=== PATIENT | male | born 1960 | race Caucasian/White ===

== ENCOUNTER 2016-12-15 12:06 | Day surgery (SDC) | payer OTHER ==
[~2016-12-15] VITALS: Ht 167.6 cm; Wt 87.8 kg
[2016-12-15] MEDS ORDERED: HYD25 PO (12:56)
[2016-12-15] MEDS ORDERED: GABA-526 PO (12:56)
[2016-12-15] MEDS ORDERED: ATOR40TA68 PO (12:56)
[2016-12-15] MEDS ORDERED: ASPI-664 PO (12:56)
[2016-12-15] MEDS ORDERED: RANO500T2 PO (12:56)
[2016-12-15] MEDS ORDERED: LISI10TA2 PO (12:56)
[2016-12-15] MEDS ORDERED: OMEP20CA16 PO (12:56)
[2016-12-15] MEDS ORDERED: METO-448 PO (12:56)
[2016-12-15 13:01] VITALS: Ht 167.6 cm; Wt 87.8 kg
[2016-12-15 16:19] VITALS: BP 125/73; PULSE 44; RESP 18
[2016-12-15] MEDS ORDERED: PROPOFOL 60 ML ONE (16:41)
--- NOTE | 2016-12-15 16:52 | OPPN ---
Date/Time of Note Date/Time of Note DATE: 12/15/16 TIME: 16:49 Proc Note GI Procedure date: Dec 15, 2016 Pre-procedure Diagnosis * Dyspepsia Post-procedure Diagnosis Assessment: * Moderate erosive gastritis. Rule out H. pylori infection. Biopsies obtained Plan: * Omeprazole 40 mg daily * Review pathology as soon as available * Follow-up as previously scheduled Operation Performed * EGD with biopsies Surgeon: NICHOLAS QUINONES MD Anesthesia Type: MAC Anesthesiologist: CHAVO HELM Estimated blood loss: none Transfusion Required: no Specimens 1 gastric body and antrum Grafts/Implants: none Complications: no Pt Condition post procedure: stable Disposition: PACU, other Procedure Description After informed consent, with the patient/relatives understanding the procedure, its indications, potential risks and complications, including but not limited to : allergic reaction, bleeding, perforation or infection, and after all pertinent questions were answered to the patients satisfaction, the patient/ relatives signed witnessed informed consent. Following this, premedication was administered slowly IV push under careful cardiovascular and respiratory monitoring with pulse oximetry, automatic blood pressure, and national sales director. Once the sedative effect was achieved the patient was place in the left lateral decubitus, the panendoscope was introduced and advanced under visual control. Careful examination of the upper gastrointestinal tract, both on insertion as well as withdrawal of the instrument disclosing the following findings: ESOPHAGUS: the mucosa of the entire esophagus was carefully examined and showed the following findings: the mucosa appears within normal limits. There is no evidence of esophagitis, varices, neoplasm, or stricture. No Hiatal Hernia identified. STOMACH: Upon entrance to the stomach air was insufflated, the gastric waite distended normally. The mucosa of the fundus, body and antrum of the stomach was carefully examined both head-on and on retroflexion, and showed the following findings: There is significant erythema edema and superficial erosion of the mucosa the antrum. Biopsies were obtained to rule out H. pylori infection. Otherwise the mucosa appears within normal limits with no abnormalities. There is no evidence of ulcers or neoplasm. PYLORUS: The pylorus was carefully examined and showed the following findings: the pylorus appears patent and within normal limits, with no evidence of gastric outlet obstruction. DUODENUM: The duodenal mucosa was carefully examined in the duodenal bulb as well as the second portion of the duodenum and showed the following findings: the mucosa appears unremarkable with no evidence of duodenitis, ulcer or neoplasm. NICHOLAS QUINONES MD Dec 15, 2016 16:52
--- NOTE | 2016-12-15 17:16 | OPPN ---
Date/Time of Note Date/Time of Note DATE: 12/15/16 TIME: 17:11 Proc Note GI Procedure date: Dec 15, 2016 Pre-procedure Diagnosis * Dyspepsia Post-procedure Diagnosis Assessment: * 6 mm polyp proximal ascending colon. Snared and retrieved * 4 mm sessile polyp descending colon. Ablated * 10 mm polyp sigmoid colon. Snared and retrieved * Mild diverticulosis. * Moderate-sized internal hemorrhoids. Plan: * Review pathology as soon as available * Annual Hemoccult stool testing * Colonoscopy in 3-5 years pending review pathology Operation Performed * Colonoscopy with polyp ablation * Colonoscopy with snare polypectomy Surgeon: NICHOLAS QUINONES MD Anesthesia Type: MAC Anesthesiologist: CHAVO HELM Estimated blood loss: none Transfusion Required: no Specimens #1 Proximal ascending colon polyp #2 Descending colon polyp #3 Sigmoid polyp Pt Condition post procedure: stable Disposition: PACU, other Procedure Description After informed consent, with the patient/relatives understanding the procedure, its indications and potential risks and complications, including but not limited to: Allergic reaction, bleeding, perforation, infection, and after all pertinent questions were answered to the patient's satisfaction, the patient/ relatives signed the witnessed informed consent. Following this, premedication was administered slowly IV push under careful cardiovascular and respiratory monitoring with pulse OXIMETRY, automatic blood pressure, and secured entrance monitor. Once the sedative effect was achieved, the patient was placed in the left lateral decubitus position, digital rectal examination was performed. The colonoscope was then introduced and advanced under visual control throughout all segments of the colon including: the rectum, sigmoid, descending colon, splenic flexure, transverse colon, hepatic flexure, ascending colon and finally reaching the cecum which was clearly identified by transillumination, finger indentation and the ileocecal valve. Careful examination of the mucosa of the lower gastrointestinal tract both on insertion as well as withdrawal of the instrument disclosed the following findings: PREPARATION QUALITY: [Adequate], RECTAL EXAM: The anorectal area was visualized examined and digital rectal examination performed with the following findings: No evidence of perirectal disease, no masses. COLONIC MUCOSA: The mucosa of all segments of the colon was carefully examined and showed the following findings: 6 mm polyp proximal ascending colon. Snared and retrieved. 4 mm sessile polyp descending colon. Ablated. 10 mm pedunculated polyp sigmoid colon snared and retrieved. There was mild diverticulosis in the left colon. Moderate-sized internal hemorrhoids are present. Otherwise the examined mucosa appears within normal limits. There is no evidence of inflammatory changes, other neoplasms, vascular malformation, or any other abnormality. The instrument was then withdrawn, the patient tolerated the procedure well and was transferred out of the Endoscopy Suite awake and in good condition to continue recovery under observation. NICHOLAS QUINONES MD Dec 15, 2016 17:16
[2016-12-15 17:40] VITALS: BP 127/67; RESP 18
== END 2016-12-15 18:15 | disposition home or self-care (01) ==
LOC: GIL 12:06
PROVIDERS: ATTEND Internal Medicine Gastroenterology
DX: Z12.11 Encounter for screening for malignant neoplasm of colon (principal); K29.30 Chronic superficial gastritis without bleeding; D12.4 Benign neoplasm of descending colon; D12.5 Benign neoplasm of sigmoid colon; K64.8 Other hemorrhoids; I10 Essential (primary) hypertension; I25.10 Atherosclerotic heart disease of native coronary artery without angina pectoris
CPT/HCPCS: 45380; 88305; 88312; Z7610

== ENCOUNTER 2018-07-14 22:32 | Inpatient (IN) | payer OTHER ==
[~2018-07-14] VITALS: Ht 167.6 cm; Wt 86.6 kg
[~2018-07-14 22:32] MED LIST: ASPI-817 PO; ATOR40TA68 PO; GABA-526 PO; HYDR25TA6 PO; LISI10TA2 PO; METO-448 PO; OMEP20CA16 PO; RANO500T2 PO
[2018-07-14] MEDS ORDERED: ONDANSETRON 4 MG INJ IV STA (22:47)
[2018-07-14] MEDS ORDERED: SOD CHLORIDE 0.9% 50 ML IV ONE (23:30)
[2018-07-14] MEDS ORDERED: ALTEPLASE 100 MG INJ IV* ONE (23:30)
[2018-07-14] MEDS ORDERED: ALTEPLASE (tPA) 1 MG/ML BOLUS SYG IV* ONE ×2 (23:30→23:45)
[2018-07-14] MEDS ORDERED: IOHEXOL 300MG/ML 150 ML BTL ONE (23:42)
[2018-07-14] MEDS ORDERED: SOD CHLORIDE 0.9% 100 ML ONE (23:42)
[2018-07-14] MEDS ORDERED: ALTEPLASE IV ONE (23:45)
[2018-07-15] VITALS (24 sets, daily range): BP systolic 109–148; BP diastolic 69–102; PULSE 58–102; RESP 11–22; Ht 167.6 cm; Wt 86.6 kg
[2018-07-15] MEDS ORDERED: ALTEPLASE 100 MG INJ IV* ONE
[2018-07-15] MEDS ORDERED: SOD CHLORIDE 0.9% 50 ML IV ONE
[2018-07-15] MEDS ORDERED: ALTEPLASE (tPA) 1 MG/ML BOLUS SYG IV* ONE
--- NOTE | 2018-07-15 00:15 | ERD ---
ER Documentation Chief Complaint Chief Complaint ILIANA 87,from home,CP radiating to L shoulder,vomiting X2 HPI 58-year-old male with a history of hypertension and CAD status post stent placement in 2016 on Plavix and aspirin brought in by ambulance from home after he started experiencing chest discomfort. He states he sat down to eat food when he suddenly felt a strong pressure in his chest. The pain was radiating to his left shoulder. He also felt pain on the right side of his head. As he was being loaded onto the ambulance, he started experiencing left foot and left hand numbness which he did not tell EMS. When I evaluated the patient, who is an [place]ian speaker, he explained to me and [place]ian that he was having the symptoms, about 10 minutes prior to arrival. He denies any associated back pain with this chest pain. He does have associated nausea and vomiting that is nonbloody and nonbilious. Denies any abdominal pain. Last known well time: 2214 ROS All systems reviewed and are negative except as per history of present illness. Medications Home Meds Reported Medications Metoprolol Succinate* (Toprol XL*) 25 Mg Tab.sr.24h, 25 MG PO DAILY, #30 TAB 07/15/18 Ranolazine* (Ranexa*) 1,000 Mg Tab.sr.12h, 1000 MG PO Q12, TAB 07/15/18 Omeprazole* (Omeprazole*) 20 Mg Capsule.dr, 20 MG PO DAILY, #30 CAP 12/15/16 Ranolazine* (Ranexa*) 500 Mg Tab.sr.12h, 500 MG PO Q12, TAB 12/15/16 Gabapentin* (Gabapentin*) 600 Mg Tablet, 600 MG PO BID, #60 TAB 12/15/16 Hydrochlorothiazide* (Hydrochlorothiazide*) 25 Mg Tab, 25 MG PO DAILY, #30 TAB 12/15/16 Lisinopril* (Lisinopril*) 10 Mg Tablet, 5 MG PO DAILY, #30 TAB 12/15/16 Aspirin* (Aspirin* EC) 81 Mg Tablet.dr, 81 MG PO DAILY, TAB 12/15/16 Atorvastatin* (Atorvastatin*) 40 Mg Tablet, 20 MG PO QHS, #30 TAB 12/15/16 Discontinued Reported Medications Metoprolol Tartrate* (Lopressor*) 25 Mg Tab, 25 MG PO BID, #60 TAB 12/15/16 Allergies Allergies: Coded Allergies: No Known Allergy (Unverified , 07/15/18) PMhx/Soc History of Surgery: Yes (HEART STENT, TONSILLECTOMY, RIGHT KNEE) Anesthesia Reaction: No Hx Neurological Disorder: No Hx Respiratory Disorders: No Hx Cardiac Disorders: Yes (HTN) Hx Psychiatric Problems: No Hx Miscellaneous Medical Probl: Yes (HIGH CHOLESTEROL) Hx Alcohol Use: No Hx Substance Use: No Hx Tobacco Use: Yes (20 YRS AGO) FmHx Family History: No diabetes Physical Exam Vitals Vital Signs Date Temp Pulse Resp B/P (MAP) Pulse Ox O2 O2 Flow FiO2 Time Delivery Rate 07/15/18 63 12 135/92 99 01:15 (106) 07/15/18 61 14 138/97 99 01:00 (111) 07/15/18 63 15 144/84 99 00:45 (104) 07/15/18 58 22 135/87 99 00:30 (103) 07/15/18 60 14 118/89 98 00:15 (99) 07/15/18 55 12 135/88 100 00:00 (104) 07/14/18 55 12 145/92 99 Room Air 23:56 (109) 07/14/18 57 16 134/94 95 Room Air 23:38 (107) 07/14/18 Nasal 2 23:15 Cannula 07/14/18 98.0 68 18 123/89 98 22:39 (100) Physical Exam Const: Appears to be in distress, vomiting Head: Atraumatic Eyes: Normal Conjunctiva, PERRLA, EOMI, no nystagmus ENT: Normal External Ears, Nose and Mouth. Neck: Full range of motion. No meningismus. No JVD Resp: Clear to auscultation bilaterally Cardio: Regular rate and rhythm, no murmurs. 2+ distal pulses in all 4 extremities Abd: Soft, non tender, non distended. Normal bowel sounds Skin: No petechiae or rashes Back: No midline or flank tenderness Ext: No cyanosis, or edema Neur: Awake and alert, oriented x3, cranial nerves intact, strength 5/5 in right upper and right lower extremities. Strength 4/5 in left upper extremity and 3/5 in left lower extremity. Diminished sensations to painful stimuli on the left. Right side sensation is intact. Psych: Normal Mood and Affect Result Diagram: 4/10/19 2252 4/10/19 2252 Results 24 hrs Laboratory Tests Test 07/14/18 22:52 White Blood Count 11.7 10^3/ul Red Blood Count 4.59 10^6/ul Hemoglobin 15.1 g/dl Hematocrit 44.5 % Mean Corpuscular Volume 96.9 fl Mean Corpuscular Hemoglobin 32.9 pg Mean Corpuscular Hemoglobin Concent 33.9 g/dl Red Cell Distribution Width 13.3 % Platelet Count 230 10^3/UL Mean Platelet Volume 10.0 fl Immature Granulocytes % 1.500 % Neutrophils % 64.8 % Lymphocytes % 25.0 % Monocytes % 7.1 % Eosinophils % 1.3 % Basophils % 0.3 % Nucleated Red Blood Cells % 0.0 /100WBC Immature Granulocytes # 0.170 10^3/ul Neutrophils # 7.6 10^3/ul Lymphocytes # 2.9 10^3/ul Monocytes # 0.8 10^3/ul Eosinophils # 0.2 10^3/ul Basophils # 0.0 10^3/ul Nucleated Red Blood Cells # 0.0 10^3/ul Prothrombin Time 13.3 Sec Prothrombin Time Ratio 1.0 INR International Normalized Ratio 1.00 Activated Partial Thromboplast Time 29.3 Sec Sodium Level 139 mmol/L Potassium Level 4.1 mmol/L Chloride Level 100 mmol/L Carbon Dioxide Level 28 mmol/L Anion Gap 11 Blood Urea Nitrogen 19 mg/dl Creatinine 1.11 mg/dl Est Glomerular Filtrat Rate mL/min > 60 mL/min Glucose Level 144 mg/dl Hemoglobin A1c 6.4 % Calcium Level 9.8 mg/dl Creatine Kinase 59 IU/L Creatine Kinase Index 1.3 Creatinine Kinase MB (Mass) 0.75 ng/ml Troponin I < 0.012 ng/ml Triglycerides Level 221 mg/dl Cholesterol Level 164 mg/dl LDL Cholesterol, Calculated 74 mg/dl HDL Cholesterol 46 mg/dl Cholesterol/HDL Ratio 3.5 RATIO Ethyl Alcohol Level < 10.0 mg/dl Current Medications Medications Dose Sig/Amanda Start Time Status Last (Trade) Ordered Route PRN Stop Time Admin Dose Reason Admin Ondansetron 4 mg ONCE STAT 07/14/18 DC 07/14/18 HCl (Zofran IV 22:47 23:49 Inj) 07/14/18 22:48 Alteplase, 8.2 mg BOLUS OVER 1 07/14/18 Cancel Recombinant MIN ONCE 23:30 (Activase) IV* 07/14/18 23:31 Alteplase, 73.6 mg ISCHEMIC 07/14/18 Cancel Recombinant STROKE ONCE 23:30 (Activase) IV* 07/14/18 23:31 Sodium 50 ml @ 0 FLUSH AFTER 07/14/18 DC Chloride mls/hr TPA ONCE IV 23:30 07/14/18 23:51 Sodium 100 ml @ ud STK-MED 07/14/18 DC 07/14/18 Chloride ONCE .ROUTE 23:42 23:42 07/14/18 23:43 Iohexol 150 ml STK-MED 07/14/18 DC 07/14/18 (Omnipaque ONCE .ROUTE 23:42 23:42 300mg/ ml) 07/14/18 23:43 Alteplase, 7.7 mg BOLUS OVER 1 07/15/18 DC 07/14/18 Recombinant MIN ONCE 00:00 23:58 (Activase) IV* 07/15/18 00:01 Alteplase, 69.7 mg ISCHEMIC 07/15/18 DC 07/14/18 Recombinant STROKE ONCE 00:00 23:59 (Activase) IV* 07/15/18 00:01 Sodium 50 ml @ 0 FLUSH AFTER 07/15/18 DC 07/15/18 Chloride mls/hr TPA ONCE IV 00:00 00:50 07/15/18 00:01 Alteplase, 69.75 ml @ ONCE ONCE 07/14/18 Cancel Recombinant 69.75 mls/ IV 23:45 hr 07/15/18 00:44 Alteplase, 7.749 mg ONCE ONCE 07/14/18 Cancel Recombinant IV* 23:45 (Activase) 07/14/18 23:46 Procedures/MDM EMERGENT LABS AND DIAGNOSTIC STUDIES: Lab Results above were reviewed and interpreted by me. CBC: no evidence of clinically significant anemia or evidence of infection CMP: No evidence of clinically significant electrolyte abnormality, acidosis, renal failure, hypoglycemia, liver disease, or biliary obstruction Coags within normal limits with no evidence of coagulopathy Troponin within normal limits, not indicative of cardiac ischemia 12-lead EKG was interpreted by Jamison Mcarthur MD: Normal Sinus Rhythm Left axis deviation Normal intervals No acute ST or T wave changes suggestive of acute ischemia or STEMI. Radiology Results as interpreted by Radiology below were reviewed by Bryant Mcarthur MD: Chest x-ray showed no acute abnormalities CT brain showed no acute abnormalities CT brain, neck, chest pending Initial Nursing notes reviewed. Previous Medical Records requested via the Electronic Health Record. EMERGENCY DEPARTMENT COURSE / MEDICAL DECISION MAKING: [] Patient's blood pressure was elevated (>120/80) but appears stable without evidence of hypertensive emergency or urgency. The patient was counseled about the risks of hypertension and urged to pursue outpatient monitoring and therapy within a week with their primary care physician. Patient initially presented with chest pain but on exam was noted to have a left-sided arm and leg weakness. at this time code stroke was activated as his symptoms that started within 20 minutes of arrival. Differential for his symptoms include but are not limited to aortic dissection, carotid dissection, acute ischemic stroke, acute intracranial hemorrhage, acute coronary syndrome. TPA Criteria Assessment: Patient was evaluated by tele-neurology. I spoke with Dr. Jane from tele-neurology and he feels the patient is a TPA candidate. I explained to him that the patient did have some chest pain prior to symptoms starting, increasing my suspicion for possible dissection. However Dr. Jane says that this is not a contraindication to TPA. His recommendation was TPA then CTA of the chest, neck, and brain. Patient was explained the risks and benefits of TPA and agreed to getting TPA. There was some delay in TPA administration due to weight documentation issues. However he did receive TPA within the 3-hour window of symptom onset. Patient was noted to have improving left upper extremity strength after TPA administration. There were no serious complications. At time of signout, patient's CTA of the brain, neck, and chest is still pending. Depending on these results, disposition will be decided. Patient signed out to the oncoming ED physician, Dr. Martinez. Neuro Critical Care: Critical Care Time: 45 minutes Treatments/Evaluations: Continuous neurologic and cardiovascular monitoring for deterioration of neurologic function and complications, while obtaining immediate neurologic imaging. Considerations made for TPA and invasive therapy with discussions with family. Departure Diagnosis: Primary Impression: Chest pain Chest pain type: unspecified Qualified Codes: R07.9 - Chest pain, unspecified Additional Impressions: Stroke-like symptoms Acute left-sided weakness Condition: Critical JOSHUA MCARTHUR MD Jul 15, 2018 00:15
--- NOTE | 2018-07-15 00:52 | STROKE ---
Date/Time of Note Date/Time of Note DATE: 07/15/18 TIME: 00:23 Patient Information General Patient location: emergency Arrival Date Onset Time: 22:21 Age 58 Gender male Weight 86.1 kg per patient verbatim Clinical Presentation acute left numbness then weakness POC Glucose Glucose Result 144 Vital Signs Vital Signs Vital Signs Date Temp Pulse Resp B/P (MAP) Pulse Ox O2 O2 Flow FiO2 Time Delivery Rate 07/15/18 55 12 135/88 100 00:00 (104) 07/14/18 98.0 22:39 Patient History Past Medical History Hypertension, Hypercholesterolemia, Coronary Artery Disease Past Surgical History Other stents Current Medications Anti-Platelets: ASA 81mg, Plavix (Clopidogrel) Allergies: Coded Allergies: No Known Allergy (Unverified , 12/15/16) Labs Coagulation Labs: Coagulation Test 07/14/18 22:52 Activated Partial Thromboplast Time 29.3 Sec (23.0-35.0) History & Physical Patient History Notes Pt Hx Reviewed History of Present Illness This is a 58 yo M with CAD s/p stents on ASA/Plavix, HTN, HL who developed chest tightness that subsequently led to left sided numbness/paresthesias and severe weakness. The patient also reported right sided head pain and associated N/V. Time of onset was about 45mins prior to consultation, or about 22:21 on 07/14. He denied any stabbing/tearing chest, abdominal, extremity, back or neck pain. CTH was reported negative for acute processes, including hemorrhage. At this time he continues to have intermittent chest "heaviness". Initial troponin was negative. Review of Systems Respiratory: denies shortness of breath Cardiovascular: see HPI Gastrointestinal: see HPI Musculoskeletal: denies back pain, denies neck pain Skin: see HPI NIH Stroke Scale NIH Stroke Scale [id number] emianopia [id number] 3 - No effort to gravity Jqtwb7Dx 3 - No effort to gravity [id number] total loss [id number] Dysarthria: [id number] core: Grfyo9f te/Time Recorded DATE: 07/15/18 TIME: 23:20 Submitted By Charlie Jane t-PA Imaging Review Imaging Reviewed: Yes Date/Time Imaging Reviewed DATE: 07/15/18 TIME: 23:37 t-PA Administration Recommendation: Yes Weight 86.1 kg per patient verbatim Bolus (mg): 7 t-PA Recommendation Date/Time 23:27 Recommedation submitted by Charlie Jane Recommendations Impression [id number] Cause: [id number] Other [id number] Site: [address] Other Diagnosis Assessment This is a 58 yo M with vascular risk factors including CAD on dual antiplatelets who presents with acute left sided numbness/paresthesias and severe weakness that began about 45mins prior to initial assessment. Preceding these symptoms he described chest tightness/pressure, and denied any tearing/stabbing sensations in his chest, extremities, back, and abdomen. He did report a right sided headache with N/V. BP in the ER ranged 120-130 systolic. CTH was negative for acute processes including bleed and NIHSS was 10. The leading differential is ischemic stroke. The symptomatology and history is not heavily supportive of aortic dissection, and again the leading etiology appears more to be ischemic stroke with a moderate/severe deficit, which I'm concerned may worsen further. THE RISKS and BENEFITS AND ALTERNATIVES OF ALTEPLASE ADMINISTRATION WERE DISCUSSED WITH THE PATIENT. Alternatives for treatment; including not receiving alteplase therapy; were offered.The patient were afforded the opportunity to ask questions regarding treatment options and anticipated care. All questions were addressed prior to initiating therapy. Inclusion/exclusion criteria were reviewed with the ER provider. TPA was recommended at 23:27 Disposition ICU Recommendation 1) CTA head/neck to evaluate for large vessel occlusion, CTA chest for cardiac workup. 2) admit to ICU for post-tpa precautions/monitoring x24h. 3) Neurology consult to guide ischemic/embolic workup: TTE w bubble, LDL, A1c, telemetry admission, MRI Brain. 4) SBP <185 during tpa monitoring period. 5) hold antipla telets and dvt pphx until stability head scan (CTH in 24h post tpa) [id number] Post t-PA Order recommendation: [id number] Document q15 min vitals Document q15 min neuro checks Refer to t-PA Order Sets [id number] Diagnostic Labs: Aaqrc8m Lipid Proile Hgb A1C CMP CBC Coags Urine Drug Screen [id number] Therapy: Svktb8s Physical Therapy Speech Therapy Occupational Therapy [id number] Misc. Recommendations: Iyduz9l Bedside Swallow Evaluation Stroke Education CHARLIE JANE MD Jul 15, 2018 00:34
[2018-07-15] MEDS ORDERED: METO-335 PO (01:26)
[2018-07-15] MEDS ORDERED: RANO10002 PO (01:26)
[2018-07-15] MEDS ORDERED: ONDANSETRON 4 MG INJ IV STA (01:34)
[2018-07-15] MEDS ORDERED: PANTOPRAZOLE 40 MG INJ IV ONE (02:00)
--- NOTE | 2018-07-15 03:25 | EN ---
Date/Time of Note Date/Time of Note DATE: 07/15/18 TIME: 03:23 ER Progress Note Observation Note: Time: 4 hours Family Hx: No Hypertension Evaluation: Multiple exams showed improving symptoms and no evidence of clinical decompensation The patient was seen by Dr. Wood, who signed the patient out to me pending CTA of the brain and neck and a CT angiogram of the chest, that were unremarkable I did discuss with the stroke neurologist and the family, who was aware of the aforementioned studies I discussed the findings with the patient. I discussed the patient with Dr Miranda , who was made aware of the lab, the treatment, the patient condition. The patient is admitted to ICU Disclaimer: Inadvertent spelling and grammatical errors are likely due to EHR/dictation software use and do not reflect on the overall quality of patient care. Also, please note that the electronic time recorded on this note does not necessarily reflect the actual time of the patient encounter. TITUS JAIN MD Jul 15, 2018 03:25
[2018-07-15] MEDS ORDERED: ACETAMINOPHEN 325 MG TAB PO PRN (03:30)
[2018-07-15] MEDS ORDERED: HYDROCODONE/APAP (5/325) TAB PO PRN (03:30)
[2018-07-15] MEDS ORDERED: ONDANSETRON 4 MG TAB PO PRN (03:30)
[2018-07-15] MEDS ORDERED: MAGNESIUM HYDROXIDE 30ML CUP PO PRN (03:30)
[2018-07-15] MEDS ORDERED: DOCUSATE SODIUM 100 MG CAP PO PRN (03:30)
[2018-07-15] MEDS ORDERED: NACL 0.9% 3 ML SYG IV SCH (03:30)
[2018-07-15] MEDS ORDERED: ONDANSETRON 4 MG INJ IV PRN (08:00)
[2018-07-15] MEDS: GABAPENTIN 300 MG CAP PO SCH ×2 (08:39→21:19)
[2018-07-15] MEDS: HYDROCHLOROTHIAZIDE 25 MG TAB PO SCH (08:39)
[2018-07-15] MEDS: FAMOTIDINE 20 MG TAB PO SCH ×2 (08:39→19:52)
[2018-07-15] MEDS: METOPROLOL (XL) 25 MG TAB PO SCH (08:40)
[2018-07-15] MEDS: LISINOPRIL 10 MG TAB PO SCH (08:40)
[2018-07-15] MEDS ORDERED: ASPIRIN (EC) 81 MG TAB PO SCH (09:00)
[2018-07-15] MEDS: RANOLAZINE (SR) 500 MG TAB PO SCH ×2 (10:44→21:18)
[2018-07-15] MEDS ORDERED: METOCLOPRAMIDE 10 MG INJ IV PRN (11:30)
--- NOTE | 2018-07-15 13:24 | HP ---
DATE OF ADMISSION: 07/15/2018 CHIEF COMPLAINT: Chest pain and left-sided weakness. HISTORY OF PRESENT ILLNESS: A 58-year-old male with a history of hypertension and coronary artery di kar[place], who called 911 after he experienced left-sided chest pain and generalized weakness. While he was in the ambulance he developed left-sided weakness and numbness involving left lower extremity. T he patient was evaluated in the Emergency Room by neuro/stroke and found to have had acute CVA. He r eceived TPA and admitted to ICU. The patient denies any further chest pain. No shortness of breath. No nausea, vomiting, or diaphoresis. Left lower extremity remained markedly weak, even after TPA a dministration. Labs revealed a normal CBC. Serial troponins have been negative. Hemoglobin A1c was 6.4. PAST MEDICAL HISTORY: 1. Coronary artery disease. 2. Status post stent placement in 2016. 3. Hypertension. 4. Hyperlipidemia. MEDICATIONS PRIOR TO ADMISSION: 1. Lipitor. 2. Lisinopril. 3. Metoprolol. 4. Ranolazine. 6. Aspirin. 7. Gabapentin. 8. Hydrochlorothiazide. 9. Omeprazole. SOCIAL HISTORY: Patient has a remote history of tobacco use, but quit more than 20 years prior to ad mission. He denies alcohol. PHYSICAL EXAMINATION: GENERAL: Well-developed, well-nourished male who is in no apparent distress. VITAL SIGNS: Stable. He is afebrile. HEENT: Extraocular muscles intact. Pupils equal and reactive to light bilaterally. Sclerae are ani cteric. Oropharynx is clear and moist. NECK: Supple, no JVD, no carotid bruits. LUNGS: Clear to auscultation bilaterally. CARDIAC: Regular rate and rhythm. No murmurs, rubs or gallops. ABDOMEN: Soft, nontender, nondistended, normoactive bowel sounds. EXTREMITIES: clubbing, cyanosis, or edema. NEUROLOGICAL: Left upper extremity with normal strength, left lower extremity with 0/5 strength. De creased sensation from the left knee down. Right-sided normal motor strengths. ASSESSMENT: 1. A 58-year-old male with acute CVA manifested by left lower extremity hemiparesis. The patient is status post TPA. 2. Chest pain. 3. Coronary artery disease, status post stent placement in 2016. 4. Hypertension. 5. Hyperlipidemia. PLAN: 1. Admit to ICU and monitor for 24 hours. 2. Neurology and cardiology consultations were requested. 3. Resume home medications. Dictated By: INOCENCIO GARCIA/DAGOBERTO Conf#: [id number] DID#: [id number]
--- NOTE | 2018-07-15 14:29 | CONS ---
Assessment/Plan Assessment/Plan Hospital Course 58 M c/ reported Hx of HTN, who presents for evaluation of acute left hemiparesis and hemisensory loss c/w stroke. Now s/p iv tpa on 07/[address] was without evidence of acute ischemia CTA head and neck is notable for mild scattered athero LDL 74 P: Await MRI brain to evaluate for acute ischemia Follow up head CT in am; May resume asa thereafter if no evidence of hemorrhagic transformation Await Echocardiogram read Add UDS; Add ESR, RPR in am labs Lipitor daily for secondary stroke prevention ST/PT/OT when able Other management and supportive care per primary Will follow clinically Consultation Date/Type/Reason Admit Date/Time Jul 15, 2018 at 03:22 Type of Consult Neurology Reason for Consultation stroke Requesting Provider: INOCENCIO DRIVER MD Date/Time of Note DATE: 07/15/18 TIME: 14:21 Exam/Review of Systems Exam Vitals Vital Signs Date Temp Pulse Resp B/P (MAP) Pulse Ox O2 O2 Flow FiO2 Time Delivery Rate 07/15/18 76 12:00 07/15/18 22 130/84 96 Nasal 11:00 (99) Cannula 07/15/18 98.9 08:00 07/15/18 2.0 05:00 07/15/18 27 04:36 Results Result Diagram: 07/14/182 07/14/182 Results 24hrs Laboratory Tests Test 07/14/18 22:52 07/15/18 05:14 07/15/18 10:52 White Blood Count 11.7 H Red Blood Count 4.59 L Hemoglobin 15.1 Hematocrit 44.5 Mean Corpuscular Volume 96.9 Mean Corpuscular Hemoglobin 32.9 Mean Corpuscular Hemoglobin Concent 33.9 Red Cell Distribution Width 13.3 Platelet Count 230 Mean Platelet Volume 10.0 Immature Granulocytes % 1.500 H Neutrophils % 64.8 Lymphocytes % 25.0 Monocytes % 7.1 Eosinophils % 1.3 Basophils % 0.3 Nucleated Red Blood Cells % 0.0 Immature Granulocytes # 0.170 H Neutrophils # 7.6 H Lymphocytes # 2.9 Monocytes # 0.8 Eosinophils # 0.2 Basophils # 0.0 Nucleated Red Blood Cells # 0.0 Prothrombin Time 13.3 Prothrombin Time Ratio 1.0 INR International Normalized Ratio 1.00 Activated Partial Thromboplast Time 29.3 Sodium Level 139 Potassium Level 4.1 Chloride Level 100 Carbon Dioxide Level 28 Anion Gap 11 Blood Urea Nitrogen 19 Creatinine 1.11 Est Glomerular Filtrat Rate mL/min > 60 Glucose Level 144 Hemoglobin A1c 6.4 H Calcium Level 9.8 Creatine Kinase 59 37 36 Creatine Kinase Index 1.3 1.6 1.8 Creatinine Kinase MB (Mass) 0.75 0.60 0.63 Troponin I < 0.012 < 0.012 < 0.012 Triglycerides Level 221 H Cholesterol Level 164 LDL Cholesterol, Calculated 74 HDL Cholesterol 46 Cholesterol/HDL Ratio 3.5 Ethyl Alcohol Level < 10.0 H Medications Medication Current Medications Aspirin (Halfprin) 81 mg DAILY PO ; Start 07/15/18 at 09:00 Gabapentin (Neurontin) 600 mg BID PO Last administered on 07/15/18 08:39; Admin Dose 600 MG; Start 07/15/18 at 09:00 Hydrochlorothiazide (Hydrochlorothiazide) 25 mg DAILY PO Last administered on 07/15/18 08:39; Admin Dose 25 MG; Start 07/15/18 at 09:00 Lisinopril (Zestril) 5 mg DAILY PO Last administered on 07/15/18 08:40; Admin Dose 5 MG; Start 07/15/18 at 09:00 Metoprolol Succinate (Toprol Xl) 25 mg DAILY PO Last administered on 07/15/18 08:40; Admin Dose 25 MG; Start 07/15/18 at 09:00 Ranolazine (Ranexa) 1,000 mg Q12 PO Last administered on 07/15/18at 10:44; Admin Dose 1,000 MG; Start 07/15/18 at 09:00 IV Flush (NS 3 ml) 3 ml PER PROTOCOL IV ; Start 07/15/18 at 03:30 Acetaminophen (Tylenol Tab) 650 mg Q6H PRN PO .PAIN 1-3 OR TEMP; Start 07/15/18 at 03:30 Acetaminophen/ Hydrocodone Bitart ([place] (5/325)) 1 tab Q6H PRN PO .PAIN 4-6; Start 07/15/18 at 03:30 Docusate Sodium (Colace) 100 mg Q12H PRN PO .CONSTIPATION Last administered on 07/15/18 08:40; Admin Dose 100 MG; Start 07/15/18 at 03:30 Magnesium Hydroxide (Milk Of Mag) 30 ml DAILY PRN PO .CONSTIPATION; Start 07/15/18 at 03:30 Famotidine (Pepcid) 20 mg Q12 PO Last administered on 07/15/18at 08:39; Admin Dose 20 MG; Start 07/15/18 at 09:00 Ondansetron HCl (Zofran Inj) 4 mg Q6H PRN IV NAUSEA AND/OR VOMITING Last administered on 07/15/18at 08:03; Admin Dose 4 MG; Start 07/15/18 at 08:00 Atorvastatin Calcium (Lipitor) 40 mg QHS PO ; Start 07/15/18 at 21:00 Metoclopramide HCl (Reglan) 10 mg Q6H PRN IV NAUSEA; Start 07/15/18 at 11:30 Past Medical History Home Meds Reported Medications Metoprolol Succinate* (Toprol XL*) 25 Mg Tab.sr.24h, 25 MG PO DAILY, #30 TAB 07/15/18 Ranolazine* (Ranexa*) 1,000 Mg Tab.sr.12h, 1000 MG PO Q12, TAB 07/15/18 Omeprazole* (Omeprazole*) 20 Mg Capsule.dr, 20 MG PO DAILY, #30 CAP 12/15/16 Gabapentin* (Gabapentin*) 600 Mg Tablet, 600 MG PO BID, #60 TAB 12/15/16 Hydrochlorothiazide* (Hydrochlorothiazide*) 25 Mg Tab, 25 MG PO DAILY, #30 TAB 12/15/16 Lisinopril* (Lisinopril*) 10 Mg Tablet, 5 MG PO DAILY, #30 TAB 12/15/16 Aspirin* (Aspirin* EC) 81 Mg Tablet.dr, 81 MG PO DAILY, TAB 12/15/16 Atorvastatin* (Atorvastatin*) 40 Mg Tablet, 20 MG PO QHS, #30 TAB 12/15/16 Discontinued Reported Medications Ranolazine* (Ranexa*) 500 Mg Tab.sr.12h, 1000 MG PO Q12, TAB 12/15/16 Metoprolol Tartrate* (Lopressor*) 25 Mg Tab, 25 MG PO BID, #60 TAB 12/15/16 Medications Current Medications Aspirin (Halfprin) 81 mg DAILY PO ; Start 07/15/18 at 09:00 Gabapentin (Neurontin) 600 mg BID PO Last administered on 07/15/18 08:39; Admin Dose 600 MG; Start 07/15/18 at 09:00 Hydrochlorothiazide (Hydrochlorothiazide) 25 mg DAILY PO Last administered on 07/15/18 08:39; Admin Dose 25 MG; Start 07/15/18 at 09:00 Lisinopril (Zestril) 5 mg DAILY PO Last administered on 07/15/18 08:40; Admin Dose 5 MG; Start 07/15/18 at 09:00 Metoprolol Succinate (Toprol Xl) 25 mg DAILY PO Last administered on 07/15/18 08:40; Admin Dose 25 MG; Start 07/15/18 at 09:00 Ranolazine (Ranexa) 1,000 mg Q12 PO Last administered on 07/15/18 10:44; Admin Dose 1,000 MG; Start 07/15/18 at 09:00 IV Flush (NS 3 ml) 3 ml PER PROTOCOL IV ; Start 07/15/18 at 03:30 Acetaminophen (Tylenol Tab) 650 mg Q6H PRN PO .PAIN 1-3 OR TEMP; Start 07/15/18 at 03:30 Acetaminophen/ Hydrocodone Bitart ([place] (5/325)) 1 tab Q6H PRN PO .PAIN 4-6; Start 07/15/18 at 03:30 Docusate Sodium (Colace) 100 mg Q12H PRN PO .CONSTIPATION Last administered on 07/15/18 08:40; Admin Dose 100 MG; Start 07/15/18 at 03:30 Magnesium Hydroxide (Milk Of Mag) 30 ml DAILY PRN PO .CONSTIPATION; Start 07/15/18 at 03:30 Famotidine (Pepcid) 20 mg Q12 PO Last administered on 07/15/18 08:39; Admin Dose 20 MG; Start 07/15/18 at 09:00 Ondansetron HCl (Zofran Inj) 4 mg Q6H PRN IV NAUSEA AND/OR VOMITING Last administered on 07/15/18 08:03; Admin Dose 4 MG; Start 07/15/18 at 08:00 Atorvastatin Calcium (Lipitor) 40 mg QHS PO ; Start 07/15/18 at 21:00 Metoclopramide HCl (Reglan) 10 mg Q6H PRN IV NAUSEA; Start 07/15/18 at 11:30 Allergies: Coded Allergies: No Known Allergy (Unverified , 07/15/18) Social History Smoking Status: Former smoker ELVA ALEXIS Jul 15, 2018 14:29
--- NOTE | 2018-07-15 14:31 | CONS ---
Assessment/Plan Assessment/Plan Hospital Course 58 M c/ reported Hx of HTN, who presents for evaluation of acute left hemiparesis and hemisensory loss c/w stroke. Now s/p iv tpa on 07/[address] was without evidence of acute ischemia CTA head and neck is notable for mild scattered athero LDL 74 P: Await MRI brain to evaluate for acute ischemia Follow up head CT in am; May resume asa thereafter if no evidence of hemorrhagic transformation Await Echocardiogram read Add UDS; Add ESR, RPR in am labs Lipitor daily for secondary stroke prevention ST/PT/OT when able Other management and supportive care per primary Will follow clinically Consultation Date/Type/Reason Admit Date/Time Jul 15, 2018 at 03:22 Type of Consult Neurology Reason for Consultation stroke; s/p TPA Requesting Provider: INOCENCIO DRIVER MD Date/Time of Note DATE: 07/15/18 TIME: 14:13 Hx of Present Illness 58 yo M with hx of HTN, CAD, stent placement in 2017, who presented to the ED with complaints of chest pain and L sided weakness and numbness. History was obtained from pt and chart review. He was determined to be a TPA candidate in the ED and was given TPA. He currently has c/o L sided weakness and diminished sensation. Denies headache, neck pain, dizziness, vision or speech changes. It is additionally elsewhere noted: CHIEF COMPLAINT: Chest pain and left-sided weakness. HISTORY OF PRESENT ILLNESS: A 58-year-old male with a history of hypertension and coronary artery disease, who called 911 after he experienced left-sided chest pain and generalized weakness. While he was in the ambulance he developed left-sided weakness and numbness involving left lower extremity. The patient was evaluated in the Emergency Room by neuro/stroke and found to have had acute CVA. He received TPA and admitted to ICU. The patient denies any further chest pain. No shortness of breath. No nausea, vomiting, or diaphoresis. Left lower extremity remained markedly weak, even after TPA administration. Labs revealed a normal CBC. Serial troponins have been negative. Hemoglobin A1c was 6.4. negative unless noted otherwise in HPI Exam/Review of Systems Exam Vitals Vital Signs Date Temp Pulse Resp B/P (MAP) Pulse Ox O2 O2 Flow FiO2 Time Delivery Rate 07/15/18 76 12:00 07/15/18 22 130/84 96 Nasal 11:00 (99) Cannula 07/15/18 98.9 08:00 07/15/18 2.0 05:00 07/15/18 27 04:36 Exam PE: Gen Appearance: No Apparent Distress HEENT: Normocephalic Cardiovascular: Regular rate Lungs: Clear bilaterally Abdomen: Soft Extremities: Dry NE: The patient was alert and oriented.. Language was normal. Fund of knowledge was normal. Pupils were equal and reactive to light. There was no afferent pupillary defect. Visual rodriguez were normal. Funduscopic examination was limited. Extra-ocular movements were full. Ptosis was absent. There was no nystagmus. Facial sensation was normal. Face was symmetric with normal strength. R facial tic noted. Hearing was intact. Palate movements were normal. Neck strength was normal. There was normal tongue bulk and speed of movement. Tone was normal. Muscle bulk was normal. I did not see fasciculations. General weakness was noted; the pt was profoundly weak on the L versus R. Vibration sensation was diminished minimally in the LUE, and more so in the LLE. Temperature and pinprick sensation was normal. Rapid alternating movements were normal. There was no dysmetria. There was no intention tremor. Gait was deferred due to bedrest. Arm and leg reflexes were 2+ and symmetric. Michel's sign was absent. Plantar responses were flexor. Results Result Diagram: 07/14/18225107/14/182 Results 24hrs Laboratory Tests Test 07/14/18 22:52 07/15/18 05:14 07/15/18 10:52 White Blood Count 11.7 H Red Blood Count 4.59 L Hemoglobin 15.1 Hematocrit 44.5 Mean Corpuscular Volume 96.9 Mean Corpuscular Hemoglobin 32.9 Mean Corpuscular Hemoglobin Concent 33.9 Red Cell Distribution Width 13.3 Platelet Count 230 Mean Platelet Volume 10.0 Immature Granulocytes % 1.500 H Neutrophils % 64.8 Lymphocytes % 25.0 Monocytes % 7.1 Eosinophils % 1.3 Basophils % 0.3 Nucleated Red Blood Cells % 0.0 Immature Granulocytes # 0.170 H Neutrophils # 7.6 H Lymphocytes # 2.9 Monocytes # 0.8 Eosinophils # 0.2 Basophils # 0.0 Nucleated Red Blood Cells # 0.0 Prothrombin Time 13.3 Prothrombin Time Ratio 1.0 INR International Normalized Ratio 1.00 Activated Partial Thromboplast Time 29.3 Sodium Level 139 Potassium Level 4.1 Chloride Level 100 Carbon Dioxide Level 28 Anion Gap 11 Blood Urea Nitrogen 19 Creatinine 1.11 Est Glomerular Filtrat Rate mL/min > 60 Glucose Level 144 Hemoglobin A1c 6.4 H Calcium Level 9.8 Creatine Kinase 59 37 36 Creatine Kinase Index 1.3 1.6 1.8 Creatinine Kinase MB (Mass) 0.75 0.60 0.63 Troponin I < 0.012 < 0.012 < 0.012 Triglycerides Level 221 H Cholesterol Level 164 LDL Cholesterol, Calculated 74 HDL Cholesterol 46 Cholesterol/HDL Ratio 3.5 Ethyl Alcohol Level < 10.0 H Medications Medication Current Medications Aspirin (Halfprin) 81 mg DAILY PO ; Start 07/15/18 at 09:00 Gabapentin (Neurontin) 600 mg BID PO Last administered on 07/15/18at 08:39; Admin Dose 600 MG; Start 07/15/18 at 09:00 Hydrochlorothiazide (Hydrochlorothiazide) 25 mg DAILY PO Last administered on 07/15/18 08:39; Admin Dose 25 MG; Start 07/15/18 at 09:00 Lisinopril (Zestril) 5 mg DAILY PO Last administered on 07/15/18 08:40; Admin Dose 5 MG; Start 07/15/18 at 09:00 Metoprolol Succinate (Toprol Xl) 25 mg DAILY PO Last administered on 07/15/18at 08:40; Admin Dose 25 MG; Start 07/15/18 at 09:00 Ranolazine (Ranexa) 1,000 mg Q12 PO Last administered on 07/15/18at 10:44; Admin Dose 1,000 MG; Start 07/15/18 at 09:00 IV Flush (NS 3 ml) 3 ml PER PROTOCOL IV ; Start 07/15/18 at 03:30 Acetaminophen (Tylenol Tab) 650 mg Q6H PRN PO .PAIN 1-3 OR TEMP; Start 07/15/18 at 03:30 Acetaminophen/ Hydrocodone Bitart ([place] (5/325)) 1 tab Q6H PRN PO .PAIN 4-6; Start 07/15/18 at 03:30 Docusate Sodium (Colace) 100 mg Q12H PRN PO .CONSTIPATION Last administered on 07/15/18at 08:40; Admin Dose 100 MG; Start 07/15/18 at 03:30 Magnesium Hydroxide (Milk Of Mag) 30 ml DAILY PRN PO .CONSTIPATION; Start 07/15/18 at 03:30 Famotidine (Pepcid) 20 mg Q12 PO Last administered on 07/15/18at 08:39; Admin Dose 20 MG; Start 07/15/18 at 09:00 Ondansetron HCl (Zofran Inj) 4 mg Q6H PRN IV NAUSEA AND/OR VOMITING Last administered on 07/15/18at 08:03; Admin Dose 4 MG; Start 07/15/18 at 08:00 Atorvastatin Calcium (Lipitor) 40 mg QHS PO ; Start 07/15/18 at 21:00 Metoclopramide HCl (Reglan) 10 mg Q6H PRN IV NAUSEA; Start 07/15/18 at 11:30 Past Medical History reviewed Home Meds Reported Medications Metoprolol Succinate* (Toprol XL*) 25 Mg Tab.sr.24h, 25 MG PO DAILY, #30 TAB 07/15/18 Ranolazine* (Ranexa*) 1,000 Mg Tab.sr.12h, 1000 MG PO Q12, TAB 07/15/18 Omeprazole* (Omeprazole*) 20 Mg Capsule.dr, 20 MG PO DAILY, #30 CAP 12/15/16 Gabapentin* (Gabapentin*) 600 Mg Tablet, 600 MG PO BID, #60 TAB 12/15/16 Hydrochlorothiazide* (Hydrochlorothiazide*) 25 Mg Tab, 25 MG PO DAILY, #30 TAB 12/15/16 Lisinopril* (Lisinopril*) 10 Mg Tablet, 5 MG PO DAILY, #30 TAB 12/15/16 Aspirin* (Aspirin* EC) 81 Mg Tablet.dr, 81 MG PO DAILY, TAB 12/15/16 Atorvastatin* (Atorvastatin*) 40 Mg Tablet, 20 MG PO QHS, #30 TAB 12/15/16 Discontinued Reported Medications Ranolazine* (Ranexa*) 500 Mg Tab.sr.12h, 1000 MG PO Q12, TAB 12/15/16 Metoprolol Tartrate* (Lopressor*) 25 Mg Tab, 25 MG PO BID, #60 TAB 12/15/16 Medications Current Medications Aspirin (Halfprin) 81 mg DAILY PO ; Start 07/15/18 at 09:00 Gabapentin (Neurontin) 600 mg BID PO Last administered on 07/15/18 08:39; Admin Dose 600 MG; Start 07/15/18 at 09:00 Hydrochlorothiazide (Hydrochlorothiazide) 25 mg DAILY PO Last administered on 07/15/18 08:39; Admin Dose 25 MG; Start 07/15/18 at 09:00 Lisinopril (Zestril) 5 mg DAILY PO Last administered on 07/15/18 08:40; Admin Dose 5 MG; Start 07/15/18 at 09:00 Metoprolol Succinate (Toprol Xl) 25 mg DAILY PO Last administered on 07/15/18 08:40; Admin Dose 25 MG; Start 07/15/18 at 09:00 Ranolazine (Ranexa) 1,000 mg Q12 PO Last administered on 07/15/18 10:44; Admin Dose 1,000 MG; Start 07/15/18 at 09:00 IV Flush (NS 3 ml) 3 ml PER PROTOCOL IV ; Start 07/15/18 at 03:30 Acetaminophen (Tylenol Tab) 650 mg Q6H PRN PO .PAIN 1-3 OR TEMP; Start 07/15/18 at 03:30 Acetaminophen/ Hydrocodone Bitart ([place] (5/325)) 1 tab Q6H PRN PO .PAIN 4-6; Start 07/15/18 at 03:30 Docusate Sodium (Colace) 100 mg Q12H PRN PO .CONSTIPATION Last administered on 07/15/18 08:40; Admin Dose 100 MG; Start 07/15/18 at 03:30 Magnesium Hydroxide (Milk Of Mag) 30 ml DAILY PRN PO .CONSTIPATION; Start 07/15/18 at 03:30 Famotidine (Pepcid) 20 mg Q12 PO Last administered on 07/15/18 08:39; Admin Dose 20 MG; Start 07/15/18 at 09:00 Ondansetron HCl (Zofran Inj) 4 mg Q6H PRN IV NAUSEA AND/OR VOMITING Last admin istered on 07/15/18 08:03; Admin Dose 4 MG; Start 07/15/18 at 08:00 Atorvastatin Calcium (Lipitor) 40 mg QHS PO ; Start 07/15/18 at 21:00 Metoclopramide HCl (Reglan) 10 mg Q6H PRN IV NAUSEA; Start 07/15/18 at 11:30 Allergies: Coded Allergies: No Known Allergy (Unverified , 07/15/18) Past Surgical History reviewed Social History reviewed Smoking Status: Former smoker LUCY AVILES NP Jul 15, 2018 14:25 ELVA ALEXIS Jul 15, 2018 14:33
--- NOTE | 2018-07-15 16:21 | CONS ---
Assessment/Plan Assessment/Plan Hospital Course (Demo Recall) Left-sided weakness and numbness status post IV TPA Chest pain CAD with history of PCI approximately 2 years ago Hypertension Dyslipidemia -Patient presented with chest pain, nausea and left-sided weakness. Code stroke was called and patient status post IV TPA yesterday. His numbness has somewhat improved in his arm but still present in his left leg with weakness -Patient with off-and-on chest pain going on over the past year and a half, worse yesterday after eating. -ECG with no significant ischemic abnormalities, serial cardiac enzymes are negative. -We will check echocardiogram, continue statin therapy. -Aspirin when okay by neurology -Blood pressure control as per neurology given possible acute CVA -Patient pending brain MRI Consultation Date/Type/Reason Admit Date/Time Jul 15, 2018 at 03:22 Type of Consult Cardiology Reason for Consultation Chest pain Date/Time of Note DATE: 07/15/18 TIME: 16:17 Hx of Present Illness This is a 58-year-old male with past medical history of coronary artery disease status post PCI approximately 2 years ago, hypertension who presents with multiple complaints. Patient with chest pain and nausea after eating yesterday. He did vomit approximately 3 times. After these episodes, he felt that he was going to pass out. 9 1 was called. In the ambulance, patient also with left- sided body numbness and weakness. Patient brought to the emergency room and code stroke status post IV TPA. He complains of intermittent chest discomfort, at times sharp, at times pressure. Activity does not worsen or improve symptoms. He denies any shortness of breath. He does still complain of numbness, tingling and weakness more so in his left leg but his left arm is better. 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 12 point review of systems was performed with all pertinent positives and negatives mentioned above and all else is negative Past Medical History Medical History: coronary artery disease, high cholesterol, hypertension Home Meds Reported Medications Metoprolol Succinate* (Toprol XL*) 25 Mg Tab.sr.24h, 25 MG PO DAILY, #30 TAB 07/15/18 Ranolazine* (Ranexa*) 1,000 Mg Tab.sr.12h, 1000 MG PO Q12, TAB 07/15/18 Omeprazole* (Omeprazole*) 20 Mg Capsule.dr, 20 MG PO DAILY, #30 CAP 12/15/16 Gabapentin* (Gabapentin*) 600 Mg Tablet, 600 MG PO BID, #60 TAB 12/15/16 Hydrochlorothiazide* (Hydrochlorothiazide*) 25 Mg Tab, 25 MG PO DAILY, #30 TAB 12/15/16 Lisinopril* (Lisinopril*) 10 Mg Tablet, 5 MG PO DAILY, #30 TAB 12/15/16 Aspirin* (Aspirin* EC) 81 Mg Tablet.dr, 81 MG PO DAILY, TAB 12/15/16 Atorvastatin* (Atorvastatin*) 40 Mg Tablet, 20 MG PO QHS, #30 TAB 12/15/16 Discontinued Reported Medications Ranolazine* (Ranexa*) 500 Mg Tab.sr.12h, 1000 MG PO Q12, TAB 12/15/16 Metoprolol Tartrate* (Lopressor*) 25 Mg Tab, 25 MG PO BID, #60 TAB 12/15/16 Medications Current Medications Gabapentin (Neurontin) 600 mg BID PO Last administered on 07/15/18at 08:39; Admin Dose 600 MG; Start 07/15/18 at 09:00 Hydrochlorothiazide (Hydrochlorothiazide) 25 mg DAILY PO Last administered on 07/15/18at 08:39; Admin Dose 25 MG; Start 07/15/18 at 09:00 Lisinopril (Zestril) 5 mg DAILY PO Last administered on 07/15/18at 08:40; Admin Dose 5 MG; Start 07/15/18 at 09:00 Metoprolol Succinate (Toprol Xl) 25 mg DAILY PO Last administered on 07/15/18at 08:40; Admin Dose 25 MG; Start 07/15/18 at 09:00 Ranolazine (Ranexa) 1,000 mg Q12 PO Last administered on 07/15/18at 10:44; Admin Dose 1,000 MG; Start 07/15/18 at 09:00 IV Flush (NS 3 ml) 3 ml PER PROTOCOL IV ; Start 07/15/18 at 03:30 Acetaminophen (Tylenol Tab) 650 mg Q6H PRN PO .PAIN 1-3 OR TEMP; Start 07/15/18 at 03:30 Acetaminophen/ Hydrocodone Bitart ([place] (5/325)) 1 tab Q6H PRN PO .PAIN 4-6; Start 07/15/18 at 03:30 Docusate Sodium (Colace) 100 mg Q12H PRN PO .CONSTIPATION Last administered on 07/15/18at 08:40; Admin Dose 100 MG; Start 07/15/18 at 03:30 Magnesium Hydroxide (Milk Of Mag) 30 ml DAILY PRN PO .CONSTIPATION; Start 07/15/18 at 03:30 Famotidine (Pepcid) 20 mg Q12 PO Last administered on 07/15/18at 08:39; Admin Dose 20 MG; Start 07/15/18 at 09:00 Ondansetron HCl (Zofran Inj) 4 mg Q6H PRN IV NAUSEA AND/OR VOMITING Last administered on 07/15/18at 08:03; Admin Dose 4 MG; Start 07/15/18 at 08:00 Atorvastatin Calcium (Lipitor) 40 mg QHS PO ; Start 07/15/18 at 21:00 Metoclopramide HCl (Reglan) 10 mg Q6H PRN IV NAUSEA; Start 07/15/18 at 11:30 Allergies: Coded Allergies: No Known Allergy (Unverified , 07/15/18) Past Surgical History Past Surgical Hx: angioplasty Family History Significant Family History: no pertinent family hx Social History Smoking Status: Former smoker Exam/Review of Systems Vital Signs Vitals Vital Signs Date Temp Pulse Resp B/P (MAP) Pulse Ox O2 O2 Flow FiO2 Time Delivery Rate 07/15/18 83 15 135/90 96 Nasal 15:00 (105) Cannula 07/15/18 98.4 12:00 07/15/18 2.0 05:00 07/15/18 27 04:36 Exam Constitutional: alert, oriented (No apparent distress) Head: normocephalic Respiratory: other (Coarse breath sounds bilaterally, no wheezing) Cardiovascular: regular rate and rhythm (S1-S2 heard) Gastrointestinal: soft, non-tender, bowel sounds Extremities: other (No significant edema) Labs Result Diagram: 07/14/18225107/14/182251 Results 24hrs Laboratory Tests Test 07/14/18 22:52 07/15/18 05:14 07/15/18 10:52 07/15/18 13:45 White Blood Count 11.7 H Red Blood Count 4.59 L Hemoglobin 15.1 Hematocrit 44.5 Mean Corpuscular 96.9 Volume Mean Corpuscular 32.9 Hemoglobin Mean Corpuscular 33.9 Hemoglobin Concent Red Cell 13.3 Distribution Width Platelet Count 230 Mean Platelet Volume 10.0 Immature 1.500 H Granulocytes % Neutrophils % 64.8 Lymphocytes % 25.0 Monocytes % 7.1 Eosinophils % 1.3 Basophils % 0.3 Nucleated Red Blood 0.0 Cells % Immature 0.170 H Granulocytes # Neutrophils # 7.6 H Lymphocytes # 2.9 Monocytes # 0.8 Eosinophils # 0.2 Basophils # 0.0 Nucleated Red Blood 0.0 Cells # Prothrombin Time 13.3 Prothrombin Time 1.0 Ratio INR International 1.00 Normalized Ratio Activated 29.3 Partial Thromboplast Time Sodium Level 139 Potassium Level 4.1 Chloride Level 100 Carbon Dioxide Level 28 Anion Gap 11 Blood Urea Nitrogen 19 Creatinine 1.11 Est Glomerular > 60 Filtrat Rate mL/min Glucose Level 144 Hemoglobin A1c 6.4 H Calcium Level 9.8 Creatine Kinase 59 37 36 Creatine Kinase 1.3 1.6 1.8 Index Creatinine Kinase MB 0.75 0.60 0.63 (Mass) Troponin I < 0.012 < 0.012 < 0.012 Triglycerides Level 221 H Cholesterol Level 164 LDL Cholesterol, 74 Calculated HDL Cholesterol 46 Cholesterol/HDL 3.5 Ratio Ethyl Alcohol Level < 10.0 H Urine Opiates Screen Negative Urine Barbiturates Negative Urine Amphetamines Negative Screen Urine Negative Benzodiazepines Screen Urine Cocaine Screen Negative Urine Cannabinoids Negative Imaging Imaging ECG demonstrates sinus rhythm at 67 bpm, normal QRS duration, no significant ischemic STT wave abnormalities Medications Medications Current Medications Gabapentin (Neurontin) 600 mg BID PO Last administered on 07/15/18 08:39; Admin Dose 600 MG; Start 07/15/18 at 09:00 Hydrochlorothiazide (Hydrochlorothiazide) 25 mg DAILY PO Last administered on 08:39; Admin Dose 25 MG; Start 07/15/18 at 09:00 Lisinopril (Zestril) 5 mg DAILY PO Last administered on 07/15/18 08:40; Admin Dose 5 MG; Start 07/15/18 at 09:00 Metoprolol Succinate (Toprol Xl) 25 mg DAILY PO Last administered on 07/15/18 08:40; Admin Dose 25 MG; Start 07/15/18 at 09:00 Ranolazine (Ranexa) 1,000 mg Q12 PO Last administered on 4/11/19at 10:44; Admin Dose 1,000 MG; Start 07/15/18 at 09:00 IV Flush (NS 3 ml) 3 ml PER PROTOCOL IV ; Start 07/15/18 at 03:30 Acetaminophen (Tylenol Tab) 650 mg Q6H PRN PO .PAIN 1-3 OR TEMP; Start 07/15/18 at 03:30 Acetaminophen/ Hydrocodone Bitart ([place] (5/325)) 1 tab Q6H PRN PO .PAIN 4-6; Start 07/15/18 at 03:30 Docusate Sodium (Colace) 100 mg Q12H PRN PO .CONSTIPATION Last administered on 07/15/18at 08:40; Admin Dose 100 MG; Start 07/15/18 at 03:30 Magnesium Hydroxide (Milk Of Mag) 30 ml DAILY PRN PO .CONSTIPATION; Start 07/05 04/24 at 03:30 Famotidine (Pepcid) 20 mg Q12 PO Last administered on 07/15/18at 08:39; Admin Dose 20 MG; Start 07/15/18 at 09:00 Ondansetron HCl (Zofran Inj) 4 mg Q6H PRN IV NAUSEA AND/OR VOMITING Last administered on 07/15/18at 08:03; Admin Dose 4 MG; Start 07/15/18 at 08:00 Atorvastatin Calcium (Lipitor) 40 mg QHS PO ; Start 07/15/18 at 21:00 Metoclopramide HCl (Reglan) 10 mg Q6H PRN IV NAUSEA; Start 07/15/18 at 11:30 Daniel Robertson DO Jul 15, 2018 16:21
--- NOTE | 2018-07-15 16:27 | RADRPT ---
Echocardiogram Report Patient Name: MIKO LOPEZPatient ID: [id number] : 1960 (58y 3m)Study Date: 07/15/2018 10:53:12 AM Gender: MAccession #: [id number] Tech: Kit Sloan [facility] Location: 106 Ref.Physician: DANIEL ROBERTSON Height(Cm): BSA: Weight(Kg): Quality: AdequateAccount #: Procedures: Echocardiographic Report: Transthoracic echocardiogram with complete 2D, M-Mode, and doppler examination. Indications: Chest Pain. Measurements: 2D/M Mode Doppler Measurement Value Normal Range Measurement Value Normal Range LVIDd 2D 4.4 [ 4.2 - 5.8 ] cm AV Peak Rene 1.2 [ 100.0 - 170.0 ] cm/sec LVIDs 2D 2.6 [ 2.5 - 4.0 ] cm AV Peak PG 6.0 [ 2.0 - 9.0 ] mmHg LVPWd 2D 1.2 [ 0.6 - 1.0 ] cm LVOT Peak Rene 1.0 [ 70.0 - 110.0 ] cm/sec IVSd 2D 1.4 [ 0.6 - 1.0 ] cm LVOT Peak PG 4.0 [ 2.0 - 6.0 ] mmHg IVS/LVPW 2D 1.2 ratio MV E Peak Rene 0.5 [ 60.0 - 130.0 ] cm/sec AoR Diam 2D 3.3 [ 2.6 - 3.4 ] cm MV A Peak Rene 0.9 [ 100.0 - 120.0 ] cm/sec LA/Ao 2D 1 ratio MV E/A 0.6 [ 0.8 - 1.5 ] ratio LA Dimen 2D 3.3 [ 3.0 - 4.0 ] cm MV Decel Time 218 [ 104 - 258 ] msec Lat E` Rene 0.1 [ 10.0 - 15.0 ] cm/sec Med E` Rene 0.1 cm/sec MV E/A 0.6 [ 0.8 - 1.5 ] ratio TR Peak Rene 2.0 [ 100.0 - 280.0 ] cm/sec TR Peak PG 17.0 mmHg RVSP 20.0 [ 10.0 - 36.0 ] mmHg RA Pressure 3.0 mmHg Findings: Left Ventricle: Normal left ventricular systolic function. Normal left ventricular cavity size. Moderate concentric left ventricular hypertrophy. Ejection fraction is visually estimated at 60 %. Tissue Doppler/Mitral Doppler indices are consistent with impaired relaxation (Stage I diastolic dysfunction). Right Ventricle: Normal right ventricular size. Normal right ventricular systolic function. Left Atrium: The left atrium is normal in size. Right Atrium: The right atrium is normal in size. Atrial Septum: Bubble study was performed with and with out valsalva indicating no evidence of intra atrial shunt. Mitral Valve: Normal appearance and function of the mitral valve with trace physiologic regurgitation. Aortic Valve: Normal appearance of the aortic valve. No significant aortic stenosis or insufficiency. Tricuspid Valve: Normal appearance of the tricuspid valve. Estimated peak PA systolic pressure 20 mmHg. There is trace tricuspid regurgitation. Pulmonic Valve: Normal pulmonic valve appearance. Pericardium: Normal pericardium with no significant pericardial effusion. Aorta: Normal aortic root. IVC: Normal size and normal respiratory collapse consistent with normal right atrial pressure. Conclusions: Normal left ventricular systolic function. Normal left ventricular cavity size. Moderate concentric left ventricular hypertrophy. Ejection fraction is visually estimated at 60 %. Tissue Doppler/Mitral Doppler indices are consistent with impaired relaxation (Stage I diastolic dysfunction). Normal right ventricular size. Normal right ventricular systolic function. The left atrium is normal in size. The right atrium is normal in size. Normal pericardium with no significant pericardial effusion. Bubble study was performed with and with out valsalva indicating no evidence of intra atrial shunt. Electronically Signed By: Daniel Robertson 2018-07-15 16:26:59 PDT
[2018-07-15] MEDS ORDERED: LATANOPROST 0.005% 2.5 ML OPH BOTH EYES PRN (20:00)
[2018-07-15] MEDS ORDERED: ATORVASTATIN 20 MG TAB PO SCH (21:00)
[2018-07-15] MEDS: OLOPATADINE 0.1% 5 ML OPH BOTH EYES SCH (21:18)
[2018-07-15] MEDS: ATORVASTATIN 40 MG TAB PO SCH (21:19)
[2018-07-16] VITALS (15 sets, daily range): BP systolic 82–113; BP diastolic 48–77; PULSE 64–99; RESP 12–27
--- NOTE | 2018-07-16 07:09 | CONS ---
DATE OF ADMISSION: 07/15/2018 DATE OF CONSULTATION: HISTORY OF PRESENT ILLNESS: The patient is a 58-year-old male who was admitted to emergency room wit h acute onset of chest pain, sudden onset of progressive left-sided weakness in which the patient can not move his left leg. The patient was evaluated by tele neurologist who has started tPA at home. T he patient was transferred to ICU in which I get a call about him by Dr. Mendosa for more evaluation an d treatment. PAST MEDICAL HISTORY: In the form of coronary artery disease, 01/2017, hypertension, dyslipidemia. MEDICATIONS: Include: 1. Lipitor 40 mg once a day. 2. Reglan 10 mg every 6 hours as needed. 3. Neurontin 600 mg twice a day. 4. Hydrochlorothiazide 25 mg once a day. 5. Lisinopril 5 mg once a day. 7. Toprol 25 mg once a day. 8. Ranexa 1000 q.12h. 9. Pepcid 20 mg once a day. 10. Zofran 4 mg every 6 hours. 11. Normal saline, IV Tylenol. 12. Hydrocodone 5/325 mg every 6 hours. 13. Max sulfate once a day. SOCIAL HISTORY: The patient has a remote history of tobacco use, but he quit around 20 years ago. D enies any alcohol or street drug. PHYSICAL EXAMINATION: CRANIAL NERVES: Cranial nerve II: Pupils equal on both sides, reactive to li ght. Cranial nerves III, IV and : Extraocular muscles are intact without nystagmus. Cranial nerv e V: Equal sensation to face. Cranial nerve VII: Decreased nasolabial fold on the left side. Cran ial nerve VIII: Decreased hearing bilaterally. Cranial nerve IX and X: Elevated palate. Cranial n erve XI: Elevates shoulder 5/5. Cranial nerve XII: With straight tongue. MOTOR: Left lower extremity is 2/5, left upper extremity is 4/5, right side is 5/5. Sensation decre ased on the left side for light touch and temperature. COORDINATION: [id number] test intact. CARDIOVASCULAR: Regular rate and rhythm. LUNGS: Equal breath sounds. ABDOMEN: Soft, relaxed, nondistended. No tenderness. ASSESSMENT AND PLAN: 1. The patient is 58-year-old status post left-sided weakness. 2. Possibility of underlying right subcortical stroke where the patient had TPA, waiting for his MRI and CT scan and I might start the patient on Plavix in the morning after the 24-hour ____ of the TPA and make sure he has no bleeding. 3. Keep the patient under deep venous thrombosis prophylaxis and decubitus ulcer prophylaxis. 4. Underlying hypertension. Keep the blood pressure at the level of 140/90 to avoid any extension o f the stroke. 5. Dyslipidemia. Follow up the patient with statin, which he is on Lipitor 40 mg once a day. 6. Follow up the patient with physical therapy and acute rehab. Again, thank you Dr. Mendosa for asking me to see the patient with you. Dictated By: KANU ARNOLD/DAGOBERTO Conf#: [id number] DID#: [id number]
[2018-07-16] MEDS: FAMOTIDINE 20 MG TAB PO SCH ×2 (08:11→21:00)
[2018-07-16] MEDS: HYDROCHLOROTHIAZIDE 25 MG TAB PO SCH (08:11)
[2018-07-16] MEDS: GABAPENTIN 300 MG CAP PO SCH ×2 (08:11→21:00)
[2018-07-16] MEDS: OLOPATADINE 0.1% 5 ML OPH BOTH EYES SCH ×2 (08:11→21:00)
[2018-07-16] MEDS: METOPROLOL (XL) 25 MG TAB PO SCH (08:12)
[2018-07-16] MEDS: LISINOPRIL 10 MG TAB PO SCH (08:13)
[2018-07-16] MEDS: RANOLAZINE (SR) 500 MG TAB PO SCH ×2 (08:14→21:00)
[2018-07-16] MEDS ORDERED: DOCU-144 PO (10:45)
--- NOTE | 2018-07-16 11:53 | CONS ---
Assessment/Plan Assessment/Plan Hospital Course 58 M c/ reported Hx of HTN, who presents for evaluation of acute left hemiparesis and hemisensory loss c/w stroke. Now s/p iv tpa on 07/14 late pm.. MRI brain was without evidence of acute ischemia Repeat HCT is without signs of hemorrhagic conversion. CTA head and neck is notable for mild scattered athero Echo is unremarkable LDL 74, ESR 9, UDS neg P: Hold ASA. Ok to continue Plavix for secondary stroke prevention. Cont Lipitor for the same. Await RPR ST/PT/OT as tolerated Other management and supportive care per primary Will follow clinically Consultation Date/Type/Reason Admit Date/Time Jul 15, 2018 at 03:22 Type of Consult Neurology Reason for Consultation stroke; s/p TPA Requesting Provider: INOCENCIO DRIVER MD Date/Time of Note DATE: 07/16/18 TIME: 11:46 24 HR Interval Summary Free Text/Dictation Continues critical care. 24h s/p TPA. Pt still endorses L sided weakness, though was able to ambulate with physical therapy today. Exam Vital Signs Vitals Vital Signs Date Temp Pulse Resp B/P (MAP) Pulse Ox O2 O2 Flow FiO2 Time Delivery Rate 07/16/18 86 17 105/70 92 Room Air 11:00 (82) 07/16/18 98.3 08:00 07/16/18 2.0 07:00 07/15/18 27 04:36 Intake and Output 07/15/18 07/15/18 07/16/18 1515:00 23:00 07:00 IntakeIntake Total 640 ml 640 ml 0 ml OutputOutput Total 500 ml 600 ml 400 ml BalanceBalance 140 ml 40 ml -400 ml Exam PE: Gen Appearance: No Apparent Distress HEENT: Normocephalic Cardiovascular: Regular rate Lungs: Clear bilaterally Abdomen: Soft Extremities: Dry NE: The patient was alert and oriented.. Language was normal. Fund of knowledge was normal. Pupils were equal and reactive to light. There was no afferent pupillary defect. Visual rodriguez were normal. Funduscopic examination was limited. Extra-ocular movements were full. Ptosis was absent. There was no nystagmus. Facial sensation was normal. Face was symmetric with normal strength. R facial tic noted. Hearing was intact. Palate movements were normal. Neck strength was normal. There was normal tongue bulk and speed of movement. Tone was normal. Muscle bulk was normal. I did not see fasciculations. The pt was weak in the LLE. Vibration sensation was still diminished minimally in the LUE, and more so in the LLE. Temperature and pinprick sensation was normal. Rapid alternating movements were normal. There was no dysmetria. There was no intention tremor. Gait was deferred due to bedrest. Arm and leg reflexes were 2+ and symmetric. Michel's sign was absent. Plantar responses were flexor. LUCY AVILES NP Jul 16, 2018 11:53
--- NOTE | 2018-07-16 12:52 | CONS ---
Assessment/Plan Assessment/Plan Hospital Course (Demo Recall) Left-sided weakness and numbness status post IV TPA Chest pain-resolved CAD with history of PCI approximately 2 years ago Preserved ejection fraction Hypertension Dyslipidemia -Patient presented with chest pain, nausea and left-sided weakness. Code stroke was called and patient status post IV TPA yesterday. His numbness has somewhat improved in his arm but still present in his left leg with weakness -Patient with off-and-on chest pain going on over the past year and a half, worse yesterday after eating. Denies further chest pain currently. Chest discomfort is nonexertional, not associated with shortness of breath. ECG with no significant ischemic abnormalities and serial cardiac enzymes remain negative, echocardiogram with preserved ejection fraction -Patient undergoing further neurologic evaluation with pending MR of the spine -Continue antiplatelet therapy, statin therapy if no contraindication, beta- blockers heart rate and blood pressure permits Consultation Date/Type/Reason Admit Date/Time Jul 15, 2018 at 03:22 Initial Consult Date Type of Consult Cardiology Requesting Provider: INOCENCIO DRIVER MD Date/Time of Note DATE: 07/16/18 TIME: 12:49 24 HR Interval Summary Free Text/Dictation Denies chest pain, shortness of breath. Still with left-sided body weakness but improved Exam/Review of Systems Vital Signs Vitals Vital Signs Date Temp Pulse Resp B/P (MAP) Pulse Ox O2 O2 Flow FiO2 Time Delivery Rate 07/16/18 99.0 70 18 101/61 93 Room Air 12:32 (74) 07/16/18 2.0 07:00 07/15/18 27 04:36 Intake and Output 07/15/18 07/15/18 07/16/18 1515:00 23:00 07:00 IntakeIntake Total 640 ml 640 ml 0 ml OutputOutput Total 500 ml 600 ml 400 ml BalanceBalance 140 ml 40 ml -400 ml Exam Constitutional: alert, oriented (No apparent distress) Head: normocephalic Respiratory: other (Coarse breath sounds bilaterally, no wheezing) Cardiovascular: regular rate and rhythm (S1-S2 heard) Gastrointestinal: soft, non-tender, bowel sounds Extremities: other (No edema) Labs Result Diagram: 07/16/18 0506 07/16/18 0506 Results 24hrs Laboratory Tests Test 07/15/18 13:45 07/16/18 05:06 Urine Opiates Screen Negative Urine Barbiturates Negative Urine Amphetamines Screen Negative Urine Benzodiazepines Screen Negative Urine Cocaine Screen Negative Urine Cannabinoids Negative White Blood Count 10.4 Red Blood Count 4.23 L Hemoglobin 13.8 L Hematocrit 41.4 L Mean Corpuscular Volume 97.9 Mean Corpuscular Hemoglobin 32.6 Mean Corpuscular Hemoglobin Concent 33.3 Red Cell Distribution Width 14.1 Platelet Count 194 Mean Platelet Volume 10.0 Immature Granulocytes % 1.200 H Neutrophils % 64.3 Lymphocytes % 24.2 Monocytes % 8.5 Eosinophils % 1.5 Basophils % 0.3 Nucleated Red Blood Cells % 0.0 Immature Granulocytes # 0.120 H Neutrophils # 6.7 Lymphocytes # 2.5 Monocytes # 0.9 Eosinophils # 0.2 Basophils # 0.0 Nucleated Red Blood Cells # 0.0 Erythrocyte Sedimentation Rate 9 Sodium Level 137 Potassium Level 4.0 Chloride Level 98 Carbon Dioxide Level 30 Anion Gap 9 Blood Urea Nitrogen 21 H Creatinine 0.98 Est Glomerular Filtrat Rate mL/min > 60 Glucose Level 134 Calcium Level 9.0 Thyroid Stimulating Hormone (TSH) 0.440 L Medications Medications Current Medications Gabapentin (Neurontin) 600 mg BID PO Last administered on 07/16/18 08:11; Admin Dose 600 MG; Start 07/15/18 at 09:00 Hydrochlorothiazide (Hydrochlorothiazide) 25 mg DAILY PO Last administered on 07/16/18 08:11; Admin Dose 25 MG; Start 07/15/18 at 09:00 Lisinopril (Zestril) 5 mg DAILY PO Last administered on 07/16/18 08:13; Admin Dose 5 MG; Start 07/15/18 at 09:00 Metoprolol Succinate (Toprol Xl) 25 mg DAILY PO Last administered on 07/16/18 08:12; Admin Dose 25 MG; Start 07/15/18 at 09:00 Ranolazine (Ranexa) 1,000 mg Q12 PO Last administered on 07/16/18 08:14; Admin Dose 1,000 MG; Start 07/15/18 at 09:00 IV Flush (NS 3 ml) 3 ml PER PROTOCOL IV ; Start 07/15/18 at 03:30 Acetaminophen (Tylenol Tab) 650 mg Q6H PRN PO .PAIN 1-3 OR TEMP Last administered on 4/12/19at 09:30; Admin Dose 650 MG; Start 07/15/18 at 03:30 Acetaminophen/ Hydrocodone Bitart ([place] (5/325)) 1 tab Q6H PRN PO .PAIN 4-6; Start 07/15/18 at 03:30 Docusate Sodium (Colace) 100 mg Q12H PRN PO .CONSTIPATION Last administered on 07/15/18 08:40; Admin Dose 100 MG; Start 07/15/18 at 03:30 Magnesium Hydroxide (Milk Of Mag) 30 ml DAILY PRN PO .CONSTIPATION; Start 07/15/18 at 03:30 Famotidine (Pepcid) 20 mg Q12 PO Last administered on 07/16/18at 08:11; Admin Dose 20 MG; Start 07/15/18 at 09:00 Ondansetron HCl (Zofran Inj) 4 mg Q6H PRN IV NAUSEA AND/OR VOMITING Last administered on 07/15/18at 08:03; Admin Dose 4 MG; Start 07/15/18 at 08:00 Atorvastatin Calcium (Lipitor) 40 mg QHS PO Last administered on 07/15/18at 21:19; Admin Dose 40 MG; Start 07/15/18 at 21:00 Metoclopramide HCl (Reglan) 10 mg Q6H PRN IV NAUSEA; Start 07/15/18 at 11:30 Olopatadine HCl (Patanol 0.1% Oph) 1 drop BID BOTH EYES Last administered on 07/16/18at 08:11; Admin Dose 1 DROP; Start 07/15/18 at 21:00 Clopidogrel Bisulfate (plaVIX) 75 mg DAILY PO ; Start 07/16/18 at 13:00 Daniel Robertson DO Jul 16, 2018 12:52
[2018-07-16] MEDS ORDERED: CLOPIDOGREL 75 MG TAB PO SCH (13:00)
[2018-07-16] MEDS ORDERED: DEXAMETHASONE 10 MG/ML 1 ML INJ IV ONE (17:30)
[2018-07-16] MEDS: ATORVASTATIN 40 MG TAB PO SCH (21:00)
[2018-07-17] MEDS ORDERED: DEXAMETHASONE 10 MG/ML 1 ML INJ IV SCH
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
== END 2018-07-16 21:25 | disposition home health service (06) | DRG 62 ==
LOC: E/R 22:32 → ICU 07-15 03:22 → 2NE 07-16 12:15
PROVIDERS: ADMIT Internal Medicine; ATTEND Internal Medicine
DX: I63.9 Cerebral infarction, unspecified (principal); G81.94 Hemiplegia, unspecified affecting left nondominant side; I25.10 Atherosclerotic heart disease of native coronary artery without angina pectoris; Z95.5 Presence of coronary angioplasty implant and graft; Z79.02 Long term (current) use of antithrombotics/antiplatelets; Z79.82 Long term (current) use of aspirin; E78.5 Hyperlipidemia, unspecified; I10 Essential (primary) hypertension; R20.2 Paresthesia of skin; M54.17 Radiculopathy, lumbosacral region; M54.12 Radiculopathy, cervical region
CPT/HCPCS: 36415; 70450; 70496; 70498; 70551; 71045; 71275; 72141; 72148; 80048; 80061; 80307; 81003; 82550; 82553; 83036; 84443; 84484; 85025; 85610; 85651; 85730; 86592; 92610; 93005; 93306; 93880; 96374; 96375; 97162; C9113; J1100; J2405; J2997; Q9967